=== PATIENT | female | born 1970 | race Caucasian/White ===

== ENCOUNTER → 2017-08-30 | Outpatient (CLI) | payer MEDICAID | END | disposition home or self-care (01) | LOC: US 08:13 | PROVIDERS: ATTEND Family Medicine | DX: N63.20 Unspecified lump in the left breast, unspecified quadrant (principal); N63.10 Unspecified lump in the right breast, unspecified quadrant | CPT/HCPCS: 76642 ==

== ENCOUNTER → 2019-10-22 | Outpatient (CLI) | payer MEDICAID | END | disposition home or self-care (01) | LOC: US 09:40 | PROVIDERS: ATTEND Family Medicine | DX: N63.23 Unspecified lump in the left breast, lower outer quadrant (principal) | CPT/HCPCS: 76642 ==

== ENCOUNTER 2024-06-30 16:56 | Inpatient (IN) | payer MEDICARE, MEDICAID ==
[~2024-06-30] VITALS: Ht 104.1 cm; Wt 68.0 kg
[~2024-06-30 16:56] MED LIST: ASCO500C15 GT; ASPI-1406 GT; ATOR10TA69 GT; BISA10SU62 RC; BUDE0.5A3 NEB; CARB100C9 GT; CLON-493 GT; DIAZ10TA4 IV; DOCU50LI25 GT; ESCI-7 GT; FERR325T6 GT; IPRA3AMP31 NEB; KEPPSOL GT; LACO50TA2 GT; LACT-89 PO; MELA10CA GT; METO25TA6 GT; MOM GT; OMEP40CA20 GT; TOPI200T15 GT
[2024-06-30 18:37] LABS: BASOPHILS % 0.5 % (0.0-2.0); DIFFERENTIAL COMMENT 0; HEMATOCRIT. 37.8 % (36.0-48.0); HEMOGLOBIN. 11.9 g/dL (12.0-16.0); LYMPHOCYTES % 18.1 % (20.0-50.0); MEAN CORPUSCULAR HGB CONC 31.5 g/dL (31.0-37.0); MEAN CORPUSCULAR VOLUME 91.9 fL (81.0-99.0); MEAN PLATELET VOLUME 10.9 fl (7.4-10.4); MONOCYTES % 9.1 % (2.0-8.0); NEUTROPHILS % 68.3 % (40.0-76.0); PLATELET 264 x1000/uL (130-400); RED BLOOD CELL COUNT 4.12 mill/uL (4.2-5.4); RED CELL DISTRIBUTION WIDTH 14.6 % (11.6-14.6); WHITE BLOOD COUNT 11.9 x1000/uL (4.5-11.0)
[2024-06-30 18:42] LABS: CARBON DIOXIDE 29 mEq/L (21-32); CHLORIDE 102 mEq/L (98-107); POTASSIUM 4.2 mEq/L (3.5-5.1); SODIUM 140 mEq/L (136-145)
[2024-06-30 18:43] LABS: CALCIUM 10.4 mg/dL (8.7-10.4)
[2024-06-30 18:48] LABS: GLUCOSE 109 mg/dL (70-105); UREA NITROGEN BLOOD 26 mg/dL (9-23)
[2024-06-30 18:50] LABS: ALANINE AMINOTRANSFERASE 38 IU/L (10-49); ALBUMIN 4.9 g/dL (3.2-4.8); ASPARTATE AMINOTRANSFERASE 23 IU/L (<34); BILIRUBIN DIRECT 0.1 mg/dL (<=3.0); BILIRUBIN TOTAL 0.3 mg/dL (0.1-1.0); PROTEIN TOTAL 8.2 g/dL (6.0-8.3); TROPONIN I HIGH SENSITIVITY 14 ng/L (3.0-34)
[2024-06-30 19:20] LABS: D-DIMER 0.38 mg/L FEU (<0.50); PROTHROMBIN TIME 11.1 sec (9.6-11.0)
[2024-06-30] MEDS: SODIUM CHLORIDE 0.9% 1000ML BAG (SEPSIS BOLUS) IV NR (19:21)
[2024-06-30] MEDS: PIPERACILLIN/TAZO 3.375G/50ML 50 ML IV NR (19:21)
[2024-06-30] MEDS: VANCOMYCIN 1G PREMIX 200 ML IV NR (20:01)
[2024-07-01] VITALS (15 sets, daily range): BP systolic 89–134; BP diastolic 55–78; PULSE 79–123; RESP 22–38; TEMP 37.503–38.22528; O2SAT 94–99
[2024-07-01] MEDS: DOXYCYCLINE 100MG/100ML 100 ML IV NR (01:36)
[2024-07-01] MEDS: LACOSAMIDE 100MG/10ML ORAL SOLN GT SCH (10:39)
[2024-07-01] MEDS: LEVETIRACETAM 500MG/5ML CUP GT SCH (10:40)
[2024-07-01] MEDS: ACETAMINOPHEN 650MG/20.3ML UDC PO PRN (11:29)
[2024-07-01] MEDS: BUDESONIDE 0.5MG/2ML NEB HHN SCH (11:57)
[2024-07-01] MEDS: IPRATROPIUM/ALBUTEROL 0.5-3(2.5)MG/3ML NEB HHN SCH (11:57)
[2024-07-01] MEDS: CARBAMAZEPINE 100MG TABLET CHEW GT SCH (14:03)
[2024-07-01] MEDS: TOPIRAMATE 100MG TABLET GT SCH (14:04)
[2024-07-01] MEDS: PIPERACILLIN/TAZO 3.375G/50ML 50 ML IV SCH (16:49)
[2024-07-01] MEDS: AZITHROMYCIN 500MG/250ML 250 ML IV SCH (16:49)
[2024-07-01] MEDS: VANCOMYCIN 750MG/250ML IV SCH (20:54)
[2024-07-01] MEDS: LEVETIRACETAM 1500MG PREMIX 100 ML IV SCH (20:54)
[2024-07-02] VITALS (16 sets, daily range): BP systolic 84–130; BP diastolic 54–81; PULSE 74–99; RESP 12–33; TEMP 36.6696–37.94748; O2SAT 95–100
[2024-07-02] MEDS: PANTOPRAZOLE SODIUM 40 MG/VIAL IV SCH (08:56)
[2024-07-02] MEDS: ENOXAPARIN 40MG/0.4ML SYR SUBCUT SCH (08:57)
[2024-07-02] MEDS: LORAZEPAM 2MG/ML INJ IV PRN (11:33)
[2024-07-02 15:50] LABS: BASOPHILS % 0.1 % (0.0-2.0); EOSINOPHILS % 3.7 % (0.0-5.0); HEMATOCRIT. 33.8 % (36.0-48.0); HEMOGLOBIN. 10.6 g/dL (12.0-16.0); MEAN CORPUSCULAR HEMOGLOBIN 29.6 pg (28.0-32.0); MEAN CORPUSCULAR HGB CONC 31.3 g/dL (31.0-37.0); MEAN CORPUSCULAR VOLUME 94.6 fL (81.0-99.0); MONOCYTES % 4.8 % (2.0-8.0); NEUTROPHILS % 83.4 % (40.0-76.0); PLATELET 194 x1000/uL (130-400); RED BLOOD CELL COUNT 3.57 mill/uL (4.2-5.4); RED CELL DISTRIBUTION WIDTH 14.7 % (11.6-14.6); WHITE BLOOD COUNT 24.9 x1000/uL (4.5-11.0)
[2024-07-02 15:57] LABS: CHLORIDE 111 mEq/L (98-107); POTASSIUM 2.9 mEq/L (3.5-5.1); SODIUM 147 mEq/L (136-145)
[2024-07-02 15:58] LABS: CARBON DIOXIDE 28 mEq/L (21-32)
[2024-07-02 15:59] LABS: CALCIUM 9.5 mg/dL (8.7-10.4)
[2024-07-02 16:03] LABS: GLUCOSE 107 mg/dL (70-105)
[2024-07-02 16:04] LABS: UREA NITROGEN BLOOD 23 mg/dL (9-23)
[2024-07-02 16:06] LABS: PHOSPHORUS 2.7 mg/dL (2.5-4.9)
[2024-07-02] MEDS: SODIUM CHLORIDE 0.45% 1,000 ML IV SCH (17:12)
[2024-07-02] MEDS: POTASSIUM CHLORIDE 20MEQ/PACKET GT NR (17:20)
[2024-07-02] MEDS: ACETYLCYSTEINE 200MG/ML 20% VIAL 4ML INH SCH (20:17)
[2024-07-03] VITALS (22 sets, daily range): BP systolic 81–108; BP diastolic 47–96; PULSE 73–91; RESP 12–29; TEMP 36.89184–38.3364; O2SAT 98–100
[2024-07-03 06:31] LABS: CARBON DIOXIDE 25 mEq/L (21-32); CHLORIDE 111 mEq/L (98-107); POTASSIUM 3.3 mEq/L (3.5-5.1); SODIUM 146 mEq/L (136-145)
[2024-07-03 06:32] LABS: CALCIUM 9.4 mg/dL (8.7-10.4)
[2024-07-03 06:37] LABS: GLUCOSE 100 mg/dL (70-105); UREA NITROGEN BLOOD 21 mg/dL (9-23)
[2024-07-03 06:39] LABS: HEMATOCRIT. 33.1 % (36.0-48.0); HEMOGLOBIN. 10.3 g/dL (12.0-16.0); MEAN CORPUSCULAR HEMOGLOBIN 29.7 pg (28.0-32.0); MEAN CORPUSCULAR HGB CONC 31.2 g/dL (31.0-37.0); MEAN CORPUSCULAR VOLUME 95.3 fL (81.0-99.0); MEAN PLATELET VOLUME 11.2 fl (7.4-10.4); PHOSPHORUS 2.5 mg/dL (2.5-4.9); PLATELET 180 x1000/uL (130-400); RED BLOOD CELL COUNT 3.47 mill/uL (4.2-5.4); RED CELL DISTRIBUTION WIDTH 14.9 % (11.6-14.6); WHITE BLOOD COUNT 21.3 x1000/uL (4.5-11.0)
[2024-07-03 06:42] LABS: DIFFERENTIAL COMMENT 1
[2024-07-03] MEDS: POTASSIUM CHLORIDE 20MEQ/PACKET GT NR (12:56)
[2024-07-03] MEDS ORDERED: AZIT500T8 MT (14:21)
[2024-07-03 17:41] LABS: POTASSIUM 3.9 mEq/L (3.5-5.1)
[2024-07-03] MEDS: VANCOMYCIN 750MG PREMIX 150 ML IV SCH (18:14)
[2024-07-03 18:28] LABS: PLATELET ESTIMATE NORMAL
[2024-07-04] VITALS (25 sets, daily range): BP systolic 98–131; BP diastolic 61–96; PULSE 71–101; RESP 12–40; TEMP 36.6696–37.72524; O2SAT 98–100
[2024-07-04 06:00] LABS: CLARITY URINE CLEAR (CLEAR); COLOR URINE YELLOW (YELLOW); GLUCOSE URINE NEGATIVE (NEGATIVE); KETONES URINE NEGATIVE (NEGATIVE); LEUKOCYTE ESTERASE URINE 1+ (NEGATIVE); NITRITE URINE NEGATIVE (NEGATIVE); OCCULT BLOOD URINE NEGATIVE (NEGATIVE); PH URINE 7.5 (4.5-8.0); PROTEIN URINE TRACE (NEGATIVE); SPECIFIC GRAVITY URINE 1.019 (1.005-1.030); UROBILINOGEN URINE 0.2 E.U./dL (0.2-1.0)
[2024-07-04 07:19] LABS: SQUAMOUS EPITHELIAL CELL URINE 1+ /lpf (RARE/1+)
[2024-07-04 07:20] LABS: WBC URINE 0-2 /hpf (0-2)
[2024-07-04 07:23] LABS: BACTERIA URINE TRACE; RBC URINE 0-2 /hpf (0-2)
[2024-07-04 10:19] LABS: BASOPHILS % 0.2 % (0.0-2.0); EOSINOPHILS % 5.2 % (0.0-5.0); HEMATOCRIT. 31.2 % (36.0-48.0); HEMOGLOBIN. 9.4 g/dL (12.0-16.0); MEAN CORPUSCULAR HEMOGLOBIN 28.9 pg (28.0-32.0); MEAN CORPUSCULAR HGB CONC 30.3 g/dL (31.0-37.0); MEAN CORPUSCULAR VOLUME 95.4 fL (81.0-99.0); MEAN PLATELET VOLUME 11.1 fl (7.4-10.4); MONOCYTES % 6.1 % (2.0-8.0); NEUTROPHILS % 78.5 % (40.0-76.0); PLATELET 175 x1000/uL (130-400); RED BLOOD CELL COUNT 3.27 mill/uL (4.2-5.4); RED CELL DISTRIBUTION WIDTH 15.1 % (11.6-14.6); WHITE BLOOD COUNT 13.3 x1000/uL (4.5-11.0)
[2024-07-04 10:20] LABS: CHLORIDE 112 mEq/L (98-107); POTASSIUM 3.4 mEq/L (3.5-5.1); SODIUM 142 mEq/L (136-145)
[2024-07-04 10:21] LABS: CARBON DIOXIDE 22 mEq/L (21-32)
[2024-07-04 10:26] LABS: CREATININE 0.9 mg/dL (0.6-1.0); GLUCOSE 139 mg/dL (70-105)
[2024-07-04 10:27] LABS: UREA NITROGEN BLOOD 13 mg/dL (9-23)
[2024-07-04] MEDS: MENTHOL/LANOLIN/CALAMINE/ZN OX OINT 71GM TOP SCH (12:00)
[2024-07-05] VITALS (22 sets, daily range): BP systolic 94–144; BP diastolic 50–79; PULSE 57–97; RESP 15–39; TEMP 36.83628–37.28076; O2SAT 98–100
[2024-07-05 07:45] LABS: BASOPHILS % 0.3 % (0.0-2.0); HEMATOCRIT. 30.1 % (36.0-48.0); HEMOGLOBIN. 9.5 g/dL (12.0-16.0); LYMPHOCYTES % 17.9 % (20.0-50.0); MEAN CORPUSCULAR HEMOGLOBIN 29.5 pg (28.0-32.0); MEAN CORPUSCULAR HGB CONC 31.4 g/dL (31.0-37.0); MEAN CORPUSCULAR VOLUME 93.9 fL (81.0-99.0); MEAN PLATELET VOLUME 11.3 fl (7.4-10.4); MONOCYTES % 7.6 % (2.0-8.0); NEUTROPHILS % 64.2 % (40.0-76.0); PLATELET 172 x1000/uL (130-400); WHITE BLOOD COUNT 9.5 x1000/uL (4.5-11.0)
[2024-07-05 08:01] LABS: CHLORIDE 114 mEq/L (98-107); POTASSIUM 3.3 mEq/L (3.5-5.1); SODIUM 144 mEq/L (136-145)
[2024-07-05 08:02] LABS: CARBON DIOXIDE 22 mEq/L (21-32)
[2024-07-05 08:07] LABS: CREATININE 0.8 mg/dL (0.6-1.0); GLUCOSE 104 mg/dL (70-105); UREA NITROGEN BLOOD 10 mg/dL (9-23)
[2024-07-05] MEDS: CARBAMAZEPINE 100 MG/5 ML GT SCH (10:00)
[2024-07-05] MEDS: TOPIRAMATE 100MG TABLET GT SCH (22:00)
[2024-07-06] VITALS (25 sets, daily range): BP systolic 98–157; BP diastolic 63–93; PULSE 71–111; RESP 13–36; TEMP 37.28076–39.11424; O2SAT 97–100
[2024-07-06] MEDS: IPRATROPIUM/ALBUTEROL 0.5-3(2.5)MG/3ML NEB HHN PRN (00:08)
[2024-07-06] MEDS: LEVETIRACETAM 500MG/5ML CUP GT SCH (20:58)
[2024-07-07] VITALS (21 sets, daily range): BP systolic 101–142; BP diastolic 59–87; PULSE 68–109; RESP 13–32; TEMP 36.89184–37.66968; O2SAT 99–100
[2024-07-07] MEDS: FAMOTIDINE 20MG/2ML VIAL IV SCH (09:49)
[2024-07-08] VITALS (25 sets, daily range): BP systolic 111–151; BP diastolic 60–85; PULSE 62–89; RESP 13–27; TEMP 36.6696–37.2252; O2SAT 99–100
[2024-07-09] VITALS (24 sets, daily range): BP systolic 95–167; BP diastolic 68–81; PULSE 50–96; RESP 15–32; TEMP 36.6696–37.16964; O2SAT 99–100
[2024-07-10] VITALS (20 sets, daily range): BP systolic 98–125; BP diastolic 60–108; PULSE 48–98; RESP 13–33; TEMP 36.78072–36.9474; O2SAT 98–100
== END 2024-07-10 23:40 | disposition home or self-care (01) | DRG 870 ==
LOC: ER 16:56 → 5EST 19:10
PROVIDERS: ADMIT Internal Medicine; ATTEND Internal Medicine
PROC: 5A1955Z Respiratory Ventilation, Greater than 96 Consecutive Hours (ICD-10-PCS; 2024-06-30)
PROC: 4A00X4Z Measurement of Central Nervous Electrical Activity, External Approach (ICD-10-PCS; principal; 2024-07-07)
DX: A41.9 Sepsis, unspecified organism (principal); G92.8 Other toxic encephalopathy; J69.0 Pneumonitis due to inhalation of food and vomit; J96.21 Acute and chronic respiratory failure with hypoxia; R47.01 Aphasia; G80.9 Cerebral palsy, unspecified; Z20.822 Contact with and (suspected) exposure to COVID-19; F79 Unspecified intellectual disabilities; R13.10 Dysphagia, unspecified; R53.81 Other malaise; I25.10 Atherosclerotic heart disease of native coronary artery without angina pectoris; G40.909 Epilepsy, unspecified, not intractable, without status epilepticus; I25.2 Old myocardial infarction; Z86.74 Personal history of sudden cardiac arrest; Z74.01 Bed confinement status; Z86.73 Personal history of transient ischemic attack (TIA), and cerebral infarction without residual deficits; Z93.0 Tracheostomy status; Z93.1 Gastrostomy status; Z79.82 Long term (current) use of aspirin; Z79.899 Other long term (current) drug therapy; Z87.442 Personal history of urinary calculi
CPT/HCPCS: 36415; 71045; 80048; 80076; 80202; 80339; 81003; 83605; 83735; 83880; 84100; 84132; 84145; 84484; 85025; 85379; 87070; 87077; 87186; 87426; 87804; 93005; 94003; 94640; 95816; 99291; A6261; J0456; J1650; J1953; J2060; J2470; J2543; J3370; J3490; J7030; J7608; J7626

== ENCOUNTER 2024-07-24 10:50 | Inpatient (IN) | payer MEDICARE, MEDICAID ==
[2024-07-24] VITALS (10 sets, daily range): BP systolic 144–157; BP diastolic 55–105; PULSE 89–119; RESP 14–28; TEMP 36.6696–37.16964; O2SAT 96–100
[~2024-07-24] VITALS: Ht 167.6 cm; Wt 67.6 kg
[~2024-07-24 10:50] MED LIST changes: +AZIT500T8 MT
[2024-07-24] MEDS: SODIUM CHLORIDE 0.9% 1,000 ML IV ONE (12:14)
[2024-07-24] MEDS ORDERED: AZITHROMYCIN 500MG/250ML 250 ML IV ONE (12:15)
[2024-07-24] MEDS: CEFTRIAXONE 1GM/50ML 50 ML IV ONE (12:18)
[2024-07-24 12:42] LABS: BASOPHILS % 0.4 % (0.0-2.0); EOSINOPHILS % 2.8 % (0.0-5.0); HEMATOCRIT. 35.7 % (36.0-48.0); HEMOGLOBIN. 11.6 g/dL (12.0-16.0); LYMPHOCYTES % 7.8 % (20.0-50.0); MEAN CORPUSCULAR HEMOGLOBIN 30.3 pg (28.0-32.0); MEAN CORPUSCULAR HGB CONC 32.4 g/dL (31.0-37.0); MEAN CORPUSCULAR VOLUME 93.6 fL (81.0-99.0); MEAN PLATELET VOLUME 10.7 fl (7.4-10.4); MONOCYTES % 5.1 % (2.0-8.0); NEUTROPHILS % 83.9 % (40.0-76.0); PLATELET 262 x1000/uL (130-400); RED BLOOD CELL COUNT 3.82 mill/uL (4.2-5.4); RED CELL DISTRIBUTION WIDTH 14.7 % (11.6-14.6); WHITE BLOOD COUNT 12.5 x1000/uL (4.5-11.0)
[2024-07-24 12:52] LABS: PROTHROMBIN TIME 11.2 sec (9.6-11.0)
[2024-07-24 12:54] LABS: CARBON DIOXIDE 25 mEq/L (21-32); CHLORIDE 104 mEq/L (98-107); POTASSIUM 4.2 mEq/L (3.5-5.1); SODIUM 137 mEq/L (136-145)
[2024-07-24 12:55] LABS: CALCIUM 9.6 mg/dL (8.7-10.4)
[2024-07-24 13:00] LABS: CREATININE 0.8 mg/dL (0.6-1.0); GLUCOSE 130 mg/dL (70-105); TROPONIN I HIGH SENSITIVITY 9 ng/L (3.0-34); UREA NITROGEN BLOOD 16 mg/dL (9-23)
[2024-07-24] MEDS: AZITHROMYCIN 500MG/250ML 250 ML IV ONE (13:36)
[2024-07-24 14:31] LABS: BG BASE EXCESS -0.2 mmol/L (-2.0-3.0); BG CARBOXYHEMOGLOBIN 0.3 % (0.5-1.5); BG DEOXYHEMOGLOBIN 0.4 % (0.0-5.0); BG FRACTION INSPIRED OXYGEN 60; BG HCO3 ACT 25.9 mmol/L (21.0-28.0); BG METHEMOGLOBIN 0.3 % (0.5-1.5); BG OXYGEN SATURATION 99.6 % (94.0-98.0); BG PCO2 48.4 mmHg (32.0-45.0); BG PH 7.346 (7.350-7.450); BG PO2 238.7 mmHg (83.0-108.0); BG SAMPLE SITE LEFT RADIAL; BG TOTAL HEMOGLOBIN 11.8 g/dL (12.0-16.0); BG VENT MODE VENT - AC
[2024-07-24] MEDS ORDERED: MEROPENEM 1,000 MG in SODIUM CHLORIDE 0.9% 100 ML IV SCH (15:15)
[2024-07-24] MEDS ORDERED: MAGNESIUM HYDROXIDE 400MG/5ML 30ML UDC GT SCH (15:15)
[2024-07-24] MEDS ORDERED: NITROGLYCERIN 0.4MG TABLET SL SL PRN (15:15)
[2024-07-24] MEDS ORDERED: GUAIFENESIN 200MG/10ML SUGAR FREE UDC PO PRN (15:30)
[2024-07-24] MEDS ORDERED: MAGNESIUM/ALUMINUM HYDROXIDE/SIMETHICONE 30ML UDC PO PRN (15:30)
[2024-07-24] MEDS ORDERED: ONDANSETRON HCL 4MG/2ML INJ IV PRN (15:30)
[2024-07-24] MEDS ORDERED: DOCUSATE SODIUM 100MG CAPSULE PO PRN (15:30)
[2024-07-24] MEDS ORDERED: ACETAMINOPHEN 325MG TABLET PO PRN ×2 (15:30)
[2024-07-24] MEDS: DEXT 5%/LACTATED RINGERS 1,000 ML IV SCH (15:30)
[2024-07-24 16:19] LABS: TROPONIN I HIGH SENSITIVITY 15 ng/L (3.0-34)
[2024-07-24] MEDS: IPRATROPIUM/ALBUTEROL 0.5-3(2.5)MG/3ML NEB HHN SCH (16:31)
[2024-07-24] MEDS: ENOXAPARIN 40MG/0.4ML SYR SUBCUT SCH (16:35)
[2024-07-24] MEDS: MEROPENEM 1G/100ML IV SCH (16:36)
[2024-07-24] MEDS ORDERED: DOCUSATE SODIUM SUGAR FREE 100MG/10ML UDC GT PRN (16:45)
[2024-07-24] MEDS ORDERED: ACETAMINOPHEN 650MG/20.3ML UDC GT PRN (16:45)
[2024-07-24 16:57] LABS: IRON 52 ug/dL (50-170)
[2024-07-24 16:58] LABS: TRIGLYCERIDE 135 mg/dL (0-150)
[2024-07-24 16:59] LABS: LDL CHOLESTEROL 71 mg/dL (5-100)
[2024-07-24 17:00] LABS: CHOLESTEROL 150 mg/dL (<200); HDL CHOLESTEROL 64 mg/dL (>65); TOTAL IRON BINDING CAPACITY 409 ug/dl (250-425)
[2024-07-24 17:04] LABS: T4 FREE 1.25 ng/dL (0.89-1.76); THYROID STIMULATING HORMONE 1.44 uIU/mL (0.55-4.78)
[2024-07-24 17:44] LABS: VITAMIN B12 SERUM 1180 pg/mL (211-911)
[2024-07-24 18:23] LABS: TROPONIN I HIGH SENSITIVITY 14 ng/L (3.0-34)
[2024-07-24] MEDS: VANCOMYCIN 1.25GM PMX (XELLIA) 250 ML IV SCH (19:57)
[2024-07-24] MEDS ORDERED: LACOSAMIDE 100MG TABLET PO SCH (21:00)
[2024-07-24] MEDS ORDERED: CARBAMAZEPINE 200MG TABLET PO SCH (21:00)
[2024-07-24] MEDS: TOPIRAMATE 100MG TABLET GT SCH (22:23)
[2024-07-24] MEDS: ATORVASTATIN CALCIUM 10MG TABLET GT SCH (22:23)
[2024-07-24] MEDS: ASCORBIC ACID 500 MG TABLET PO SCH (22:23)
[2024-07-24] MEDS: METOPROLOL TARTRATE 25MG TABLET GT SCH (22:24)
[2024-07-24] MEDS: LEVETIRACETAM 500MG/5ML CUP GT SCH (22:25)
[2024-07-24] MEDS: LACOSAMIDE 100MG/10ML ORAL SOLN GT SCH (22:25)
[2024-07-24] MEDS: CARBAMAZEPINE 100 MG/5 ML GT SCH (22:26)
[2024-07-24] MEDS: ACETAMINOPHEN 650MG/20.3ML UDC GT PRN (22:33)
[2024-07-25] VITALS (23 sets, daily range): BP systolic 99–155; BP diastolic 42–113; PULSE 41–108; RESP 14–32; TEMP 36.22512–37.89192; O2SAT 96–100
[2024-07-25] MEDS: VANCOMYCIN 1GM PMX (XELLIA) 200 ML IV SCH (00:05)
[2024-07-25 07:31] LABS: BASOPHILS % 0.4 % (0.0-2.0); HEMATOCRIT. 34.8 % (36.0-48.0); HEMOGLOBIN. 11.4 g/dL (12.0-16.0); LYMPHOCYTES % 13.6 % (20.0-50.0); MEAN CORPUSCULAR HEMOGLOBIN 30.5 pg (28.0-32.0); MEAN CORPUSCULAR HGB CONC 32.8 g/dL (31.0-37.0); MEAN CORPUSCULAR VOLUME 93.1 fL (81.0-99.0); MONOCYTES % 10.1 % (2.0-8.0); NEUTROPHILS % 74.9 % (40.0-76.0); PLATELET 257 x1000/uL (130-400); RED BLOOD CELL COUNT 3.74 mill/uL (4.2-5.4); RED CELL DISTRIBUTION WIDTH 14.9 % (11.6-14.6)
[2024-07-25 07:36] LABS: CHLORIDE 112 mEq/L (98-107); POTASSIUM 3.5 mEq/L (3.5-5.1); SODIUM 147 mEq/L (136-145)
[2024-07-25 07:37] LABS: CALCIUM 9.6 mg/dL (8.7-10.4); CARBON DIOXIDE 24 mEq/L (21-32)
[2024-07-25 07:41] LABS: TROPONIN I HIGH SENSITIVITY 18 ng/L (3.0-34)
[2024-07-25 07:42] LABS: CREATININE 0.9 mg/dL (0.6-1.0); GLUCOSE 110 mg/dL (70-105)
[2024-07-25 07:43] LABS: UREA NITROGEN BLOOD 18 mg/dL (9-23)
[2024-07-25 07:44] LABS: ALANINE AMINOTRANSFERASE 33 IU/L (10-49); ALBUMIN 4.1 g/dL (3.2-4.8); ASPARTATE AMINOTRANSFERASE 33 IU/L (<34); CREATINE KINASE 592 IU/L (34-145)
[2024-07-25 07:45] LABS: BILIRUBIN TOTAL 0.3 mg/dL (0.1-1.0); PROTEIN TOTAL 7.3 g/dL (6.0-8.3)
[2024-07-25] MEDS ORDERED: ASPIRIN 81MG EC TABLET PO SCH (09:00)
[2024-07-25] MEDS: PANTOPRAZOLE SODIUM 40 MG/VIAL IV SCH (09:08)
[2024-07-25] MEDS: ZINC SULFATE 220 MG ( 50 ) CAPSULE PO SCH (09:08)
[2024-07-25] MEDS: ASPIRIN 81MG TABLET GT SCH (09:08)
[2024-07-25] MEDS: ZOLPIDEM TARTRATE 5MG TABLET PO PRN (23:18)
[2024-07-26] VITALS (23 sets, daily range): BP systolic 129–151; BP diastolic 64–109; PULSE 57–96; RESP 13–28; TEMP 34.61388–37.39188; O2SAT 99–100
[2024-07-27] VITALS (25 sets, daily range): BP systolic 106–157; BP diastolic 68–97; PULSE 51–89; RESP 14–29; TEMP 36.22512–37.28076; O2SAT 98–100
[2024-07-27] MEDS: ACETYLCYSTEINE 200MG/ML 20% VIAL 4ML INH SCH (00:38)
[2024-07-27 06:23] LABS: BASOPHILS % 0.7 % (0.0-2.0); EOSINOPHILS % 12.9 % (0.0-5.0); HEMATOCRIT. 30.7 % (36.0-48.0); HEMOGLOBIN. 9.6 g/dL (12.0-16.0); LYMPHOCYTES % 19.8 % (20.0-50.0); MEAN CORPUSCULAR HEMOGLOBIN 30.4 pg (28.0-32.0); MEAN CORPUSCULAR HGB CONC 31.4 g/dL (31.0-37.0); MEAN CORPUSCULAR VOLUME 96.8 fL (81.0-99.0); MEAN PLATELET VOLUME 10.8 fl (7.4-10.4); MONOCYTES % 8.9 % (2.0-8.0); NEUTROPHILS % 57.7 % (40.0-76.0); PLATELET 224 x1000/uL (130-400); RED BLOOD CELL COUNT 3.17 mill/uL (4.2-5.4); RED CELL DISTRIBUTION WIDTH 15.4 % (11.6-14.6); WHITE BLOOD COUNT 10.7 x1000/uL (4.5-11.0)
[2024-07-27 06:25] LABS: CHLORIDE 122 mEq/L (98-107); POTASSIUM 3.2 mEq/L (3.5-5.1); SODIUM 153 mEq/L (136-145)
[2024-07-27 06:26] LABS: CALCIUM 9.4 mg/dL (8.7-10.4); CARBON DIOXIDE 21 mEq/L (21-32)
[2024-07-27 06:31] LABS: CREATININE 0.8 mg/dL (0.6-1.0); GLUCOSE 382 mg/dL (70-105); UREA NITROGEN BLOOD 11 mg/dL (9-23)
[2024-07-27] MEDS: FAMOTIDINE 20MG/2ML VIAL IV SCH (09:05)
[2024-07-27] MEDS ORDERED: VANCOMYCIN 500MG PREMIX 100 ML IV SCH (18:00)
[2024-07-27] MEDS ORDERED: VANCOMYCIN 1GM PMX (XELLIA) 200 ML IV SCH (18:00)
[2024-07-28] VITALS (23 sets, daily range): BP systolic 104–144; BP diastolic 54–88; PULSE 47–104; RESP 14–32; TEMP 36.83628–37.94748; O2SAT 90–100
[2024-07-29] VITALS (19 sets, daily range): BP systolic 109–162; BP diastolic 67–101; PULSE 65–93; RESP 12–29; TEMP 36.9474–37.28076; O2SAT 95–100
[2024-07-29 06:18] LABS: CARBON DIOXIDE 23 mEq/L (21-32); CHLORIDE 119 mEq/L (98-107); SODIUM 150 mEq/L (136-145)
[2024-07-29 06:20] LABS: CALCIUM 9.4 mg/dL (8.7-10.4)
[2024-07-29 06:24] LABS: CREATININE 0.7 mg/dL (0.6-1.0); GLUCOSE 96 mg/dL (70-105); UREA NITROGEN BLOOD 9 mg/dL (9-23)
[2024-07-29 06:34] LABS: BASOPHILS % 0.4 % (0.0-2.0); EOSINOPHILS % 8.4 % (0.0-5.0); HEMATOCRIT. 30.7 % (36.0-48.0); HEMOGLOBIN. 9.6 g/dL (12.0-16.0); LYMPHOCYTES % 17.6 % (20.0-50.0); MEAN CORPUSCULAR HEMOGLOBIN 29.6 pg (28.0-32.0); MEAN CORPUSCULAR HGB CONC 31.3 g/dL (31.0-37.0); MEAN CORPUSCULAR VOLUME 94.5 fL (81.0-99.0); MEAN PLATELET VOLUME 11.1 fl (7.4-10.4); MONOCYTES % 6.4 % (2.0-8.0); NEUTROPHILS % 67.2 % (40.0-76.0); PLATELET 216 x1000/uL (130-400); RED BLOOD CELL COUNT 3.25 mill/uL (4.2-5.4); RED CELL DISTRIBUTION WIDTH 14.9 % (11.6-14.6); WHITE BLOOD COUNT 11.3 x1000/uL (4.5-11.0)
[2024-07-29 07:46] LABS: POTASSIUM 2.6 mEq/L (3.5-5.1)
[2024-07-29] MEDS ORDERED: POTASSIUM CHLORIDE 40 MEQ in DEXT 5% WATER 230 ML IV ONE (13:00)
[2024-07-29] MEDS: POTASSIUM CHLORIDE 20MEQ/PACKET PO NR (17:05)
[2024-07-29] MEDS: KCL 20MEQ/100ML X 2 FOR TOTAL KCL 40MEQ/200ML IV SCH (18:26)
[2024-07-30] VITALS (26 sets, daily range): BP systolic 110–175; BP diastolic 69–105; PULSE 64–85; RESP 17–30; TEMP 36.89184–37.7808; O2SAT 98–100
[2024-07-30] MEDS: IPRATROPIUM/ALBUTEROL 0.5-3(2.5)MG/3ML NEB NEB PRN (00:44)
[2024-07-31] VITALS (22 sets, daily range): BP systolic 115–177; BP diastolic 77–114; PULSE 60–91; RESP 14–29; TEMP 36.9474–37.55856; O2SAT 98–100
[2024-07-31] MEDS: LEVOFLOXACIN 250MG TABLET PO SCH (16:00)
[2024-07-31] MEDS: LEVOFLOXACIN 500MG TABLET PO SCH (18:52)
[2024-07-31] MEDS: CEFTAZIDIME PENTAHYDRATE 2 G in DEXT 5% WATER 100 ML IV SCH (18:53)
[2024-08-01] VITALS (23 sets, daily range): BP systolic 118–166; BP diastolic 55–106; PULSE 63–121; RESP 14–54; TEMP 36.696–37.44744; O2SAT 99–100
[2024-08-01 06:23] LABS: CARBON DIOXIDE 23 mEq/L (21-32); CHLORIDE 111 mEq/L (98-107); POTASSIUM 3.1 mEq/L (3.5-5.1); SODIUM 144 mEq/L (136-145)
[2024-08-01 06:29] LABS: CREATININE 0.9 mg/dL (0.6-1.0); GLUCOSE 114 mg/dL (70-105); UREA NITROGEN BLOOD 14 mg/dL (9-23)
[2024-08-01 06:46] LABS: BASOPHILS % 0.4 % (0.0-2.0); EOSINOPHILS % 7.3 % (0.0-5.0); HEMATOCRIT. 33.9 % (36.0-48.0); HEMOGLOBIN. 10.6 g/dL (12.0-16.0); MEAN CORPUSCULAR HEMOGLOBIN 29.2 pg (28.0-32.0); MEAN CORPUSCULAR HGB CONC 31.2 g/dL (31.0-37.0); MEAN CORPUSCULAR VOLUME 93.8 fL (81.0-99.0); MEAN PLATELET VOLUME 11.4 fl (7.4-10.4); MONOCYTES % 7.4 % (2.0-8.0); NEUTROPHILS % 59.9 % (40.0-76.0); PLATELET 218 x1000/uL (130-400); RED BLOOD CELL COUNT 3.61 mill/uL (4.2-5.4); RED CELL DISTRIBUTION WIDTH 15.2 % (11.6-14.6)
[2024-08-01] MEDS: CLONIDINE 0.1MG TABLET PO PRN (12:10)
[2024-08-01] MEDS: LORAZEPAM 2MG/ML INJ IV PRN (13:58)
[2024-08-01] MEDS ORDERED: METOPROLOL SUCCINATE 50MG ER TABLET PO SCH (18:00)
[2024-08-02] VITALS (21 sets, daily range): BP systolic 109–146; BP diastolic 63–83; PULSE 59–84; RESP 14–27; TEMP 36.78072–37.61412; O2SAT 99–100
[2024-08-02] MEDS: LEVOFLOXACIN 250MG TABLET PO SCH (11:39)
[2024-08-03] VITALS (23 sets, daily range): BP systolic 107–149; BP diastolic 59–93; PULSE 60–95; RESP 14–30; TEMP 36.00288–37.503; O2SAT 98–100
[2024-08-03] MEDS ORDERED: NALOXONE HCL 0.4MG/ML VIAL IV PRN (14:00)
[2024-08-03 16:45] LABS: CLARITY URINE CLOUDY (CLEAR); COLOR URINE YELLOW (YELLOW); GLUCOSE URINE NEGATIVE (NEGATIVE); KETONES URINE NEGATIVE (NEGATIVE); LEUKOCYTE ESTERASE URINE 2+ (NEGATIVE); NITRITE URINE NEGATIVE (NEGATIVE); OCCULT BLOOD URINE NEGATIVE (NEGATIVE); PH URINE 7.5 (4.5-8.0); PROTEIN URINE 1+ (NEGATIVE); SPECIFIC GRAVITY URINE 1.017 (1.005-1.030); UROBILINOGEN URINE 0.2 E.U./dL (0.2-1.0)
[2024-08-03 17:33] LABS: BACTERIA URINE 1+; RBC URINE NONE SEEN /hpf (0-2); SQUAMOUS EPITHELIAL CELL URINE 1+ /lpf (RARE/1+)
[2024-08-04] VITALS (14 sets, daily range): BP systolic 98–149; BP diastolic 60–95; PULSE 60–98; RESP 14–34; TEMP 36.3918–37.28076; O2SAT 1–100
[2024-08-04] MEDS: MORPHINE SULFATE 2 MG/ML INJ (NOT FOR IM USE) IV PRN (00:49)
[2024-08-04] MEDS ORDERED: AMOXICILLIN 250MG/5ML ORAL SYRINGE PO SCH (14:00)
[2024-08-04] MEDS: AMOXICILLIN 250MG/5ML ORAL SYRINGE GT SCH (15:07)
== END 2024-08-04 17:30 | disposition home or self-care (01) | DRG 870 ==
LOC: ER 10:50 → EDBEDREQTM 14:05 → EDBEDREQ 14:05 → EDBEDREQSVC 14:05 → 5EST 17:49
PROVIDERS: ADMIT Internal Medicine; ATTEND Internal Medicine
PROC: 5A1955Z Respiratory Ventilation, Greater than 96 Consecutive Hours (ICD-10-PCS; principal; 2024-07-24)
DX: A41.9 Sepsis, unspecified organism (principal); J18.9 Pneumonia, unspecified organism; J96.21 Acute and chronic respiratory failure with hypoxia; J96.22 Acute and chronic respiratory failure with hypercapnia; E87.0 Hyperosmolality and hypernatremia; G40.909 Epilepsy, unspecified, not intractable, without status epilepticus; E78.00 Pure hypercholesterolemia, unspecified; D63.8 Anemia in other chronic diseases classified elsewhere; G80.9 Cerebral palsy, unspecified; I25.10 Atherosclerotic heart disease of native coronary artery without angina pectoris; I10 Essential (primary) hypertension; R13.10 Dysphagia, unspecified; Z93.1 Gastrostomy status; B96.5 Pseudomonas (aeruginosa) (mallei) (pseudomallei) as the cause of diseases classified elsewhere; Y95 Nosocomial condition; Z93.0 Tracheostomy status
CPT/HCPCS: 36415; 36600; 71045; 80048; 80053; 80061; 80202; 80339; 81003; 82375; 82550; 82553; 82607; 82746; 82805; 83036; 83540; 83550; 83605; 83735; 83880; 84145; 84439; 84443; 84484; 85025; 87070; 87077; 87186; 93005; 93970; 94003; 94640; 99291; A6261; C1893; J0456; J0696; J0713; J1650; J2060; J2185; J2270; J2470; J3370; J3480; J3490; J7030; J7060; J7608